=== PATIENT | female | born 1960 ===

== ENCOUNTER 2018-07-10 01:03 | Emergency (ER) | payer BC ==
[2018-07-10 01:23] VITALS: RESP 16; TEMP 97.8
--- NOTE | 2018-07-10 01:48 | ED PDOC ---
HPI: Trauma/Fall - HPI Time Seen by Provider: 07/10/18 01:22 Chief Complaint (Nursing): Trauma Chief Complaint (Provider): Trauma History Per: Patient History/Exam Limitations: no limitations Onset/Duration Of Symptoms: Mins Injury Occurred (Timing): Just Before Arrival Additional Complaint(s): Patient is a 58 y/o female with a PMHx of breast cancer presents to the ED for evaluation of upper back, left hip, and knee pain after a slip and fall, onset prior to arrival. Patient states she did not try to ambulate after injury. Patient reports she did not lose consciousness nor did she experience any episodes of vomiting. Of note, the pt is in remission for breast cancer. PCP: None Provided Past Medical History Reviewed: Historical Data, Nursing Documentation, Vital Signs Vital Signs: Last Vital Signs Temp 97.8 F 07/10/18 01:18 Pulse 86 07/10/18 01:18 Resp 16 07/10/18 01:18 BP 136/72 07/10/18 01:18 Pulse Ox 98 07/10/18 01:18 - Medical History Other PMH: Breast CA - Surgical History Surgical History: No Surg Hx - Family History Family History: States: Unknown Family Hx - Social History Drugs: Cannabis (Possible) - Home Medications Home Medications: Ambulatory Orders Medication Instructions Recorded Naproxen [Naprosyn] 500 mg PO BID PRN #20 tablet 07/10/18 - Allergies Allergies/Adverse Reactions: Allergies Allergy/AdvReac Type Severity Reaction Status Date / Time codeine Allergy ITCHING Verified 07/10/18 01:18 Sulfa (Sulfonamide AdvReac VOMITING Verified 07/10/18 01:18 Antibiotics) Review of Systems ROS Statement: Except As Marked, All Systems Reviewed And Found Negative Gastrointestinal: Negative for: Vomiting Musculoskeletal: Positive for: Back Pain (Upper), Leg Pain (Knee), Other (Hip Pain) Neurological: Negative for: Other (LOC) Physical Exam - Reviewed Nursing Documentation Reviewed: Yes Vital Signs Reviewed: Yes - Physical Exam Appears: Positive for: No Acute Distress Head Exam: Positive for: ATRAUMATIC, NORMAL INSPECTION, NORMOCEPHALIC Skin: Positive for: Normal Color Eye Exam: Positive for: Normal appearance Neck: Positive for: Normal. 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 Negative for: Motor/Sensory Deficits - ECG O2 Sat by Pulse Oximetry: 98 (RA) Pulse Ox Interpretation: Normal Medical Decision Making Medical Decision Making: Time: 6 Plan: CT XR --- Scribe Attestation: Documented by Davie Humphries acting as a scribe for Brittany Garay MD. Provider Scribe Attestation: All medical record entries made by the Scribe were at my direction and personally dictated by me. I have reviewed the chart and agree that the record accurately reflects my personal performance of the history, physical exam, medical decision making, and the department course for this patient. I have also personally directed, reviewed, and agree with the discharge instructions and disposition. Disposition - Clinical Impression Clinical Impression: Fall from slipping - Patient ED Disposition Is Patient to be Admitted: Transfer of Care - Disposition Disposition Time: 04:00 Condition: STABLE Prescriptions: Naproxen [Naprosyn] 500 mg PO BID PRN #20 tablet PRN Reason: Pain, Moderate (4-7) Instructions: Preventing Falls in the Older Adult Forms: [employer] (Ukrainian) Print Language: [place] Patient Signed Over To: Maci Maldonado
--- NOTE | 2018-07-10 04:10 | ED PDOC ---
- ECG O2 Sat by Pulse Oximetry: 98 (RA) Pulse Ox Interpretation: Normal Medical Decision Making Medical Decision Making: Time: 0400 -- Patient endorsed to me by Dr. Garay, pending CT and XR. Time: 07 -- Patient endorsed to Dr. Siddiqui, pending imaging, re-evaluation and final ER di sposition. Scribe Attestation: Documented by Hellen Vela, acting as a scribe for Maci Maldonado MD. Provider Scribe Attestation: All medical record entries made by the Scribe were at my direction and personally dictated by me. I have reviewed the chart and agree that the record accurately reflects my personal performance of the history, physical exam, medical decision making, and the department course for this patient. I have also personally directed, reviewed, and agree with the discharge instructions and disposition. Disposition - Clinical Impression Clinical Impression: Fall from slipping - POA Present On Arrival: None - Disposition Disposition: Transfer of Care Disposition Time: 07:00 Condition: STABLE Prescriptions: RX: Naproxen [Naprosyn] 500 mg PO BID PRN #20 tablet PRN Reason: Pain, Moderate (4-7) Instructions: Preventing Falls in the Older Adult Forms: [employer] (Slovak) Print Language: CAMEROONIAN Patient Signed Over To: Ayanna Siddiqui Handoff Comments: pending imaging, re-evaluation and final ER disposition.
--- NOTE | 2018-07-10 07:38 | ED PDOC ---
- ECG O2 Sat by Pulse Oximetry: 98 (RA) Medical Decision Making Medical Decision Making: Time: 699 --Patient endorsed to provider by Dr. Maldonado, pending imaging results. Time: 719 --CT head FINDINGS: BRAIN No acute intraparenchymal hemorrhage. No mass lesion. No CT evidence for acute territorial infarct. No midline shift or extra-axial collections. VENTRICLES: No hydrocephalus. ORBITS: The orbits are unremarkable. SINUSES AND MASTOIDS: The paranasal sinuses and mastoid air cells are clear. BONES: No fracture. SOFT TISSUES: Unremarkable. IMPRESSION: No acute intracranial abnormality. Time: 720 --CT C-spine FINDINGS: There is no fracture or spondylolisthesis visualized. The paraspinal soft tissues are unremarkable. There are no lytic or blastic lesions. Straightening of cervical lordosis is seen, suggesting muscular spasm. There is evidence of mild to moderate multilevel disk disease, demonstrated by osteophytosis and endplate sclerosis. No significant disk herniation is noted at any level. Canal and foramina remain patent. IMPRESSION: 1. No fracture or spondylolisthesis. 2. Straightening of cervical lordosis is seen, suggesting muscular spasm. 3. Multilevel spondylosis. Scribe Attestation: Documented by Kristine Pina, acting as a scribe for Ayanna Siddiqui MD. Provider Scribe Attestation: All medical record entries made by the Scribe were at my direction and personally dictated by me. I have reviewed the chart and agree that the record accurately reflects my personal performance of the history, physical exam, medical decision making, and the department course for this patient. I have also personally directed, reviewed, and agree with the discharge instructions and disposition. - imaging results reviewed. additional imaging reviewed. No bony injury noted. Some soft tissue swelling c/w with blunt trauma due to fall. Disposition Doctor Will See Patient In The: Office Counseled Patient/Family Regarding: Diagnosis, Need For Followup, Rx Given - Clinical Impression Clinical Impression: Fall from slipping - POA Present On Arrival: Falls Or Trauma - Disposition Disposition: Routine/Home Disposition Time: 11:30 Condition: STABLE Prescriptions: Naproxen [Naprosyn] 500 mg PO BID PRN #20 tablet PRN Reason: Pain, Moderate (4-7) Instructions: Preventing Falls in the Older Adult Forms: [employer] (Frisian) Print Language: [place] CITIZEN
--- NOTE | 2018-07-10 11:56 | CT ---
Date of service: 07/10/2018 PROCEDURE: CT HEAD WITHOUT CONTRAST. HISTORY: Fall COMPARISON: None available. TECHNIQUE: Axial computed tomography images were obtained through the head/brain without intravenous contrast. Radiation dose: Total exam DLP = 987.7 mGy-cm. This CT exam was performed using one or more of the following dose reduction techniques: Automated exposure control, adjustment of the mA and/or kV according to patient size, and/or use of iterative reconstruction technique. FINDINGS: HEMORRHAGE: No intracranial hemorrhage. BRAIN: Suspect minimal chronic periventricular white matter ischemic changes. Small chronic appearing lacunar type inferior anterior aspect anterior limb left internal capsule also felt to be present. There is also a small chronic appearing subcortical infarct left frontal region. VENTRICLES: No obstructive hydrocephalus. CALVARIUM: Unremarkable. PARANASAL SINUSES: Unremarkable as visualized. No significant inflammatory changes. MASTOID AIR CELLS: Unremarkable as visualized. No inflammatory changes. OTHER FINDINGS: None. IMPRESSION: No acute intracranial hemorrhage. Suspect minimal chronic periventricular white matter ischemic changes and small chronic appearing lacunar type infarct anterior limb left internal capsule with small subcortical lacunar type infarct left frontal region.
--- NOTE | 2018-07-10 12:04 | CT ---
Date of service: 07/10/2018 PROCEDURE: CT Cervical Spine without contrast HISTORY: Fall COMPARISON: None available. TECHNIQUE: Axial computed tomography images were obtained of the cervical spine without the use of intravenous contrast. Coronal and sagittal reformatted images were created and reviewed. Radiation dose: Total exam DLP = 437.44 mGy-cm. This CT exam was performed using one or more of the following dose reduction techniques: Automated exposure control, adjustment of the mA and/or kV according to patient size, and/or use of iterative reconstruction technique. FINDINGS: VERTEBRAE: No compression fractures no retropulsed fragments. Vertebral bodies exhibit normal stature.. Fusion of the C3 and C4 vertebral body segments. Clinical correlation with history recommended. Very slight anterior kyphosis C4 over C5 with straightening of the cervical lordosis of above and below this level. Findings may be due to muscle spasm.. DISCS/SPINAL CANAL/NEURAL FORAMINA: Mild multilevel degenerative spondylosis. At the C4-C5 level, there is disc space narrowing more so along the anterior disc margin with small central and bilateral disc bulge that results in mild canal narrowing and compression of a fax on the ventral surface of the thecal sac and cord. Minimal degenerative squaring of the uncovertebral joints. Exit foramina adequate. At the C5-C6 level, there is disc space narrowing with small broad-based disc bulge ridge complex that also results in apparent mild canal stenosis and compressive effects on the ventral surface of the thecal sac and spinal cord. Mild hypertrophic uncovertebral joint changes however exit foramina appear adequate PARASPINAL SOFT TISSUES: Unremarkable. OTHER FINDINGS: There is an ill-defined low-attenuation lesion left lobe thyroid gland with 2 or 3 small calcifications left lobe and at least 1 calcification right lobe. Recommend follow-up thyroid ultrasound. IMPRESSION: No acute fractures. Fusion changes of the C3 and C4 vertebral bodies. Clinical correlation recommended. Mild multilevel degenerative spondylosis. Low-attenuation lesion left lobe thyroid gland with small bilateral thyroid calcifications. Follow-up thyroid ultrasound recommended. Note that this report was placed in PA review folder for follow up.
[2018-07-10 12:13] VITALS: BP 135/85; PULSE 69
--- NOTE | 2018-07-10 15:54 | RAD ---
Date of service: 07/10/2018 PROCEDURE: Radiographs of the Left Shoulder HISTORY: slip and fall COMPARISON: No prior study available for comparison FINDINGS: BONES: Normal. No fracture. JOINTS: Normal. Glenohumeral and acromioclavicular joints preserved. No osteoarthritis. SOFT TISSUES: Normal. OTHER FINDINGS: None. IMPRESSION: Normal radiographs of the left shoulder.
--- NOTE | 2018-07-10 16:04 | RAD ---
Date of service: 07/10/2018 PROCEDURE: Left Knee Radiographs. HISTORY: Pain. COMPARISON: None. FINDINGS: BONES: Normal. No fracture. JOINTS: Tricompartmental degenerative osteoarthritis. JOINT EFFUSION: Suprapatellar joint effusion felt be present. OTHER FINDINGS: None. IMPRESSION: No evidence of acute displaced fracture nor dislocation. Small tricompartmental degenerative osteoarthritis.
--- NOTE | 2018-07-10 16:14 | RAD ---
Date of service: 07/10/2018 PROCEDURE: Right Wrist Radiographs. HISTORY: slip and fall COMPARISON: No prior study available for comparison FINDINGS: BONES: Normal. No fracture. JOINTS: Normal. No dislocation. SOFT TISSUES: Normal. OTHER FINDINGS: None. IMPRESSION: No definitive radiographic evidence of acute displaced fracture nor dislocation. If symptoms persist or occult fracture suspected clinically recommend repeat radiographs in 5-10 days as most fractures should become radiographically evident in this timeframe..
--- NOTE | 2018-07-10 18:09 | RAD ---
PROCEDURE: Left Hip X-ray Radiographs. HISTORY: Fall COMPARISON: None. FINDINGS: BONES: Normal. No fracture. JOINTS: Normal. SOFT TISSUES: Normal. OTHER FINDINGS: None. IMPRESSION: Normal left hip radiographs.
[2018-07-11 00:02] VITALS: O2SAT 98
== END 2018-07-10 12:19 | disposition home or self-care (01) ==
LOC: H.ER 01:03
DX: M54.6 Pain in thoracic spine (principal); M25.552 Pain in left hip; M25.562 Pain in left knee; W01.0XXA Fall on same level from slipping, tripping and stumbling without subsequent striking against object, initial encounter; Z85.3 Personal history of malignant neoplasm of breast; Z88.2 Allergy status to sulfonamides

== ENCOUNTER 2018-09-15 20:49 | Emergency (ER) | payer BC, MEDICAID ==
[2018-09-15 22:34] LABS: BASO # 0.1 K/uL (0.0-0.2); BASO % 0.5 % (0.0-2.0); EOS # 0.4 K/uL (0.0-0.7); EOS % 3.4 % (0.0-4.0); HEMOGLOBIN 9.7 g/dL (12.0-16.0); LYMPH # 2.6 K/uL (1.0-4.3); LYMPH % 22.8 % (20.0-40.0); MEAN CELL VOLUME 83.6 fl (81.0-99.0); MEAN CORPUSCULAR HEMOGLOBIN 26.5 pg (27.0-31.0); MEAN CORPUSCULAR HGB CONC 31.7 g/dL (33.0-37.0); MEAN PLATELET VOLUME 9.3 fl (7.2-11.7); MONO # 0.6 K/uL (0.0-0.8); MONO % 5.4 % (0.0-10.0); NEUT # 7.8 K/uL (1.8-7.0); NEUT % 67.9 % (50.0-75.0); RBC 3.65 Mil/uL (3.80-5.20); RED CELL DISTRIBUTION WIDTH 16.6 % (11.5-14.5); WHITE BLOOD COUNT 11.5 K/uL (4.8-10.8)
[2018-09-15 22:44] LABS: ALB/GLOB RATIO 1.2 (1.0-2.1); ALBUMIN 3.6 g/dL (3.5-5.0); ALT/SGPT 21 U/L (9-52); AST/SGOT 20 U/L (14-36); BLOOD UREA NITROGEN 27 mg/dl (7-17); CALCIUM 9.3 mg/dL (8.4-10.2); GFR NON-AFRICAN AMERICAN 36
[2018-09-15 23:21] VITALS: RESP 18
[2018-09-15 23:32] LABS: SQUAMOUS EPITHIAL 13 /hpf (0-5); URINE BACTERIA RARE (<OCC); URINE BILIRUBIN MODERATE (NEGATIVE); URINE BLOOD NEGATIVE (NEGATIVE); URINE CLARITY CLOUDY (Clear); URINE COLOR AMBER (YELLOW); URINE GLUCOSE (UA) NEG (NEGATIVE); URINE HYALINE CAST >20 /hpf (0-2); URINE LEUKOCYTE ESTERASE MOD Leu/uL (Negative); URINE PROTEIN 100 mg/dL (NEGATIVE)
--- NOTE | 2018-09-15 23:36 | ED PDOC ---
HPI: Trauma/Fall - HPI Time Seen by Provider: 09/15/18 21:14 Chief Complaint (Nursing): Trauma Chief Complaint (Provider): Trauma History Per: Patient, Family History/Exam Limitations: no limitations Injury Occurred (Timing): Just Before Arrival Additional Complaint(s): 58 y/o female presents to the ED complaining of left shoulder pain and lip laceration s/p fall. Patient states that earlier today [place] the train and was woken up abruptly as she reached her stop. She rushed off the train and tripped falling face forward. Patient's daughter, who is at her bedside, reports that she did not witness the fall but she was with the patient at that time. She states that patient was lying on the ground but moving. When she turned patient over she was responsive but groggy. Currently patient is complaining of left shoulder pain and a laceration to her lower lip. She denies loss of consciousness, nausea, vomiting, shortness of breath, chest pain, or ne ck pain. Past Medical History Reviewed: Historical Data, Nursing Documentation, Vital Signs Vital Signs: Last Vital Signs Temp 97.2 F L 09/15/18 21:05 Pulse 62 09/15/18 23:05 Resp 18 09/15/18 23:05 BP 101/50 L 09/15/18 23:05 Pulse Ox 98 09/15/18 23:05 - Medical History PMH: Arthritis, HTN, Hypercholesterolemia - Surgical History Surgical History: Appendectomy - Family History Family History: States: Unknown Family Hx - Home Medications Home Medications: Ambulatory Orders Medication Instructions Recorded Naproxen [Naprosyn] 500 mg PO BID PRN #20 tablet 07/10/18 Cephalexin [cephalexin] 500 mg PO Q6 #28 cap 09/16/18 - Allergies Allergies/Adverse Reactions: Allergies Allergy/AdvReac Type Severity Reaction Status Date / Time codeine Allergy ITCHING Verified 07/10/18 01:18 Sulfa (Sulfonamide AdvReac VOMITING Verified 07/10/18 01:18 Antibiotics) Review of Systems ROS Statement: Except As Marked, All Systems Reviewed And Found Negative ENT: Positive for: Other (lip laceration) Cardiovascular: Negative for: Chest Pain Respiratory: Negative for: Shortness of Breath Gastrointestinal: Negative for: Nausea, Vomiting Musculoskeletal: Positive for: Shoulder Pain Physical Exam - Reviewed Nursing Documentation Reviewed: Yes Vital Signs Reviewed: Yes - Physical Exam Appears: Positive for: No Acute Distress (sleeping; easily arousable) Head Exam: Positive for: ATRAUMATIC, NORMOCEPHALIC Skin: Positive for: Normal Color, Warm, DRY Eye Exam: Positive for: EOMI, Normal appearance, PERRL ENT: Positive for: TM Is/Are (no hemotympanum), Other (lower lip with 1 cm linear very superficial laceration, not extending beyond all border) Neck: Positive for: Normal, Painless ROM Cardiovascular/Chest: Positive for: Regular Rate, Rhythm, Chest Non Tender. Negative for: Murmur Respiratory: Positive for: Normal Breath Sounds. Negative for: Respiratory Distress Pulses-Radial (L): 2+ Pulses-Radial (R): 2+ Gastrointestinal/Abdominal: Positive for: Normal Exam, Soft. Negative for: Tenderness Back: Positive for: Normal Inspection Extremity: Positive for: Normal ROM, Tenderness (left lateral shoulder tenderness). Negative for: Deformity Neurological/Psych: Positive for: Alert, Oriented (x3) - Laboratory Results Result Diagrams: 09/15/18 22:20 09/15/18 22:20 Lab Results: Troponin I < 0.0120 ng/mL (0.00-0.120) 09/15/18 22:20 Total Bilirubin 0.3 mg/dl (0.2-1.3) 09/15/18 22:20 AST 20 U/L (14-36) 09/15/18 22:20 ALT 21 U/L (9-52) 09/15/18 22:20 Alkaline Phosphatase 95 U/L (38-126) 09/15/18 22:20 Total Protein 6.7 G/DL (6.3-8.2) 09/15/18 22:20 Albumin 3.6 g/dL (3.5-5.0) 09/15/18 22:20 Globulin 3.1 gm/dL (2.2-3.9) 09/15/18 22:20 Albumin/Globulin Ratio 1.2 (1.0-2.1) 09/15/18 22:20 - ECG ECG: Positive for: Interpreted By Me ECG Rhythm: Positive for: Sinus Rhythm. Negative for: ST/T Changes Rate: 62 O2 Sat by Pulse Oximetry: 98 (RA) Pulse Ox Interpretation: Normal - Radiology X-Ray: Interpreted by Me (SHOULDER X-RAY) X-Ray Interpretation: No Acute Disease - Progress ED Course And Treament: CT head w/o contrast, CT maxillofacial w/o contrast: negative as per radiology report. Medical Decision Making Medical Decision Making: Time: 21:46 Impression: lip laceration, head injury, fall, shoulder injury. Initial Plan: * CT Head * CT Maxillofacial * Labs Scribe Attestation: Documented by Hua Yu acting as a scribe for Keyon San PA-C. Provider Scribe Attestation: All medical record entries made by the Scribe were at my direction and personally dictated by me. I have reviewed the chart and agree that the record accurately reflects my personal performance of the history, physical exam, medical decision making, and the department course for this patient. I have also personally directed, reviewed, and agree with the discharge instructions and disposition. Procedures - Time-Out Type of Procedure: laceration repair Site of Procedure: lower lip Correct Patient (with visual ID + MR# on ID Band): Yes Correct Procedure: Yes Correct Site Marked: Yes X-Ray Marked: Yes Physician Name: Mena GRAVES - Laceration/Wound Repair laceration repair Wound Length (cm): 1 Wound's Depth, Shape: superficial, irregular Wound Explored: clean Irrigated w/ Saline (ccs): 50 Wound Repaired With: Sutures Suture Size/Type: 6:0, nylon Number of Sutures: 1 Wound Complexity: Simple Disposition - Clinical Impression Clinical Impression: Lip laceration, Head injury, Shoulder injury, UTI (urinary tract infection) - Patient ED Disposition Is Patient to be Admitted: No - Disposition Referrals: [facility] [Outside] Disposition: Routine/Home Disposition Time: 00:27 Condition: STABLE Additional Instructions: FOLLOW UP WITH YOUR DOCTOR FOR FURTHER EVALUATION RETURN TO ED IMMEDIATELY IF SYMPTOMS WORSEN KIM JADE, thank you for letting us take care of you today. Your provider was Bran Garcia MD and you were treated for FALL,HEAD INJURY. The emergency medical care you received today was directed at your acute symptoms. If you were prescribed any medication, please fill it and take as directed. It may take several days for your symptoms to resolve. Return to the Emergency Department if your symptoms worsen, do not improve, or if you have any other problems. Please contact your doctor or call one of the physicians/clinics you have been referred to that are listed on the Patient Visit Information form that is included in your discharge packet. Bring any paperwork you were given at [facility] with you along with any medications you are taking to your follow up visit. Our treatment cannot replace ongoing medical care by a primary care provider outside of the emergency department. Thank you for allowing the [facility] team to be part of your care today. If you had an X-Ray or CT scan: A Radiologist will review the ED reading if any change in treatment is needed we will contact you. If you had a blood, urine, or wound culture: It will take several days for the results, if any change in treatment is needed we will contact you. If you had an STI test: It will take 48 hours for the results. Please call after 1 week if you have not heard back. Prescriptions: Cephalexin [cephalexin] 500 mg PO Q6 #28 cap Instructions: Urinary Tract Infection, Adult (DC), Wound Care (DC), Closed Head Injury (DC), Laceration Repair With Stitches (DC) Forms: [employer] (Palestinian) Print Language: CITIZEN OF [place]
[2018-09-16 01:16] VITALS: BP 111/74; TEMP 97.3
[2018-09-16 05:56] VITALS: PULSE 62; O2SAT 98
--- NOTE | 2018-09-16 07:59 | CT ---
Date of service: 09/15/2018 PROCEDURE: CT HEAD WITHOUT CONTRAST. HISTORY: trauma COMPARISON: None available. TECHNIQUE: Axial computed tomography images were obtained through the head/brain without intravenous contrast. Radiation dose: Total exam DLP = 1010.18 mGy-cm. This CT exam was performed using one or more of the following dose reduction techniques: Automated exposure control, adjustment of the mA and/or kV according to patient size, and/or use of iterative reconstruction technique. FINDINGS: HEMORRHAGE: No intracranial hemorrhage. BRAIN: No mass effect or edema. No atrophy or chronic microvascular ischemic changes. VENTRICLES: Unremarkable. No hydrocephalus. CALVARIUM: Unremarkable. PARANASAL SINUSES: Unremarkable as visualized. No significant inflammatory changes. MASTOID AIR CELLS: Unremarkable as visualized. No inflammatory changes. OTHER FINDINGS: None. IMPRESSION: Normal CT of the Head.
--- NOTE | 2018-09-16 08:16 | CT ---
Date of service: 09/15/2018 PROCEDURE: CT MAXILLOFACIAL BONES WITHOUT CONTRAST HISTORY: trauma COMPARISON: None available. TECHNIQUE: Contiguous axial CT images of the maxillofacial bones were obtained. Coronal and sagittal reformats were generated. Radiation dose: Total exam DLP = 759.58 mGy-cm. This CT exam was performed using one or more of the following dose reduction techniques: Automated exposure control, adjustment of the mA and/or kV according to patient size, and/or use of iterative reconstruction technique. FINDINGS: NASAL BONES: Unremarkable. ORBITS: Unremarkable. PARANASAL SINUSES/ MASTOIDS: Clear. MAXILLA: Unremarkable. MANDIBLE/ TEMPOROMANDIBULAR JOINTS: Unremarkable. SKULL BASE: Unremarkable. TEMPORAL BONES: Middle ears and mastoid grossly unremarkable. OTHER FINDINGS: None. IMPRESSION: Unremarkable non contrast enhanced CT of the maxillofacial bones.
--- NOTE | 2018-09-16 08:37 | RAD ---
Date of service: 09/15/2018 PROCEDURE: Radiographs of the Left Shoulder HISTORY: trauma COMPARISON: No prior. FINDINGS: BONES: Normal. No fracture. JOINTS: Normal. Glenohumeral and acromioclavicular joints preserved. No osteoarthritis. SOFT TISSUES: Normal. OTHER FINDINGS: None. IMPRESSION: Normal radiographs of the left shoulder.
--- NOTE | 2018-09-16 20:04 | CARD ---
APPROVED REPORT Date of service: 09/15/2018 EKG Measurement Heart [id number] <Conclusion> Normal sinus rhythm ST elevation, consider early repolarization, pericarditis, or injury Abnormal ECG
== END 2018-09-16 01:27 | disposition home or self-care (01) ==
LOC: H.ER 20:49
DX: S01.511A Laceration without foreign body of lip, initial encounter (principal); S09.90XA Unspecified injury of head, initial encounter; S49.92XA Unspecified injury of left shoulder and upper arm, initial encounter; N39.0 Urinary tract infection, site not specified; W17.89XA Other fall from one level to another, initial encounter; Y92.522 Railway station as the place of occurrence of the external cause